=== PATIENT | female | born 1950 | race Caucasian/White ===

== ENCOUNTER 2023-04-08 11:05 | Outpatient (RCR) | payer MEDICARE, OTHER, SELFPAY | END 2023-04-08 23:59 | disposition home or self-care (01) | LOC: RPT 11:05 | PROVIDERS: ATTENDING PHYSICIAN Physical Medicine & Rehabilitation; FAMILY PHYSICIAN Family Medicine | DX: M16.11 Unilateral primary osteoarthritis, right hip (principal); M25.651 Stiffness of right hip, not elsewhere classified; R26.2 Difficulty in walking, not elsewhere classified; Z73.6 Limitation of activities due to disability | CPT/HCPCS: 97010; 97110; 97112; 97140 ==

== ENCOUNTER → 2023-06-25 14:02 | Outpatient (REF) | payer MEDICARE, OTHER, SELFPAY | LOC: DHCBS MAIN 14:02 | PROVIDERS: ATTENDING PHYSICIAN Internal Medicine Cardiovascular Disease; FAMILY PHYSICIAN Family Medicine | DX: R07.89 Other chest pain (principal) | CPT/HCPCS: 93306 ==

== ENCOUNTER → 2023-07-27 14:24 | Outpatient (REF) | payer MEDICARE, OTHER, SELFPAY | LOC: WDC 14:24 | PROVIDERS: ATTENDING PHYSICIAN Family Medicine | DX: Z12.31 Encounter for screening mammogram for malignant neoplasm of breast (principal) | CPT/HCPCS: 77063; 77067 ==

== ENCOUNTER 2023-09-08 12:31 | Emergency (ER) | payer MEDICARE, OTHER, SELFPAY ==
[2023-09-08 12:33] VITALS: BP 118/66
[2023-09-08 12:51] VITALS: BMI 28.2
[2023-09-08 13:15] LABS: COVID-19 Antigen Negative (Negative)
--- NOTE | 2023-09-08 13:27 | ED.GENMED ---
History of Present Illness
General
Chief Complaint: Breathing Problem
Source: patient
Exam Limitations: none
Time Seen by Provider: 09/08/23 12:55
Nursing documentation reviewed up to this point in time: agreed with
Travel History
Have you had any contact with someone who has COVID-19?: No
Do you have any symptoms of coronavirus? Fever > 100 degrees, chills, cough, shortness of breath, sore throat, loss of taste or smell, muscle aches, or headache?: No
History of Present Illness
History of Present Illness:
Patient presents to ED secondary to 4-day history of cough, sore throat, chills, and body ache. Denies loss of appetite. Denies vomiting or diarrhea. Denies headache. Denies rash. Denies recent travel. Denies back pain. Denies leg pain or
swelling. Denies recent surgery.
Past History
Past History
ED Past Medical History: Asthma, HTN, Hypercholesterolemia, Hypothyroidism and Other
ED Past Surgical History: None
Social History
Tobacco: Non-smoker
Personal: Single
Living: alone
Review of Systems
Review of Systems
Allergies reviewed?: Yes
All Other Systems: ROS reviewed and negative except as documented in HPI and ROS
Constitutional: Reports fever and chills
EENT: Reports sore throat
Respiratory: Reports cough and trouble breathing
Cardiac: Reports no symptoms
ABD/GI: Reports no symptoms; Denies abdominal pain, nausea or vomiting
: Reports no symptoms
Musculoskeletal: Reports muscle pain
Skin: Reports no symptoms
Neurological: Reports no symptoms; Denies dizzy or headache
Phy Exam
Physical Exam
Physical Exam:
Physical Exam
General: no apparent distress, not acutely ill. afebrile
Head: nc/at. eomi
Neck: supple. no meningeal signs. normal posterior pharynx
Heart: s1/s2 regular rate and rhythm, no murmur. equal radial pulses.
Lungs: mild respiratory distress. mild expiratory wheezing noted bilaterally
Abdomen: normal bowel sounds. not tender.
Neuro: alert and oriented. no focal neurological deficits
Skin: no rash
Psychiatric: well kept. interactive and cooperative
Extremities: no edema. no calf tenderness.
Scores
Heart Failure Risk
Heart Failure Risk Score: Not Applicable
Course
Orders/Labs/Results
Orders:
Orders
09/08/23 12:45
Chest [CR Chest - 2 Views ] Urgent
Comment:
Reason For Exam: fever & cough
09/08/23 12:51
COVID-19 Antigen Urgent
Source: Nasal Swab
Influenza A+B Rapid Molecular Urgent
HERB Source: Nasal Swab
Specimen Description:
09/08/23 13:27
Acetaminophen [Tylenol] 650 mg PO NOW STA
Albuterol Nebs [Ventolin Nebules] 2.5 mg INH R NOW STA
Benzonatate [Tessalon Perles] 100 mg PO NOW STA
Ipratropium/Albuterol Sulfate [Duoneb] 3 ml INH R NOW STA
Prednisone [Deltasone] 50 mg PO NOW STA
Vital Signs
Initial and Last Documented VS:
Initial Vital Signs
Temp Pulse Resp BP Pulse Ox
101.5 F H 97 20 118/66 98
09/08/23 12:33 09/08/23 12:33 09/08/23 12:33 09/08/23 12:33 09/08/23 12:33
Last Documented Vital Signs
Temp Pulse Resp BP Pulse Ox
98.4 F 84 18 100/66 95
09/08/23 15:15 09/08/23 15:10 09/08/23 15:10 09/08/23 15:15 09/08/23 15:10
MDM/Problems Addressed
MDM/Problems Addressed:
CXR: No acute changes.
History and exam consistent with likely bronchitis versus viral/bacterial pneumonia versus URI. Patient reports improvement in symptoms after treatment treatment and remains hemodynamically stable during observation. Patient without any evidence
of hemodynamic instability, dehydration, or any acute respiratory distress. As such, patient will be discharged home with following recommendation: Amarjit-Heladio, Noe Perle, albuterol inhaler, along with prednisone, as well as PCP follow-up for
reevaluation as an outpatient. Patient expresses understanding at time of discharge.
*Critical Care Note
Total Time (30-74mins, 75-104mins- exclusive of procedures): Not Applicable
ED Attending Note
-
Portions of this chart may have been created with voice recognition software.� Occasional wrong word or��sound alike� substitutions may have occurred due to the inherent limitations of voice recognition software.
Discharge Plan
Departure
Patient Disposition: Home (Routine Discharge)
Date of Disposition: 09/08/23
Time of Disposition: 14:59
Patient with high blood pressure during this ER visit?: No
Discharge Problem:
URI (upper respiratory infection)
Instructions: Upper Respiratory Infection - Adult
Prescriptions:
New
albuterol sulfate [ProAir HFA] 90 mcg/actuation Hfa Aerosol Inhaler
2 puff INHALATION Q4HPRN PRN (Reason: shortness of breath) Qty: 6.7 0RF
azithromycin [Zithromax] 250 mg Tablet
250 mg PO DAILY Qty: 6 0RF
prednisone 50 mg Tablet
50 mg PO DAILY Qty: 2 0RF
benzonatate 100 mg capsule
100 mg PO TID PRN (Reason: Cough) Qty: 14 0RF
No Action
aspirin [Aspirin Childrens] 81 MG tablet,chewable
81 mg PO DAILY
levothyroxine 112 MCG tablet
112 mcg PO DAILY
multivitamin 1 EACH tablet
1 ea PO DAILY
lisinopril 5 MG tablet
5 mg PO DAILY
coenzyme Q10 [Co Q-10] 200 MG capsule
200 mg PO DAILY
atorvastatin 10 MG tablet
10 mg PO DAILY
carvedilol 12.5 mg tablet
12.5 mg PO BID
acetaminophen 500 mg Tablet
500 mg PO Q6H PRN (Reason: mild pain)
spironolactone 25 mg tablet
12.5 mg PO DAILY
albuterol sulfate 90 mcg/actuation Hfa Aerosol Inhaler
2 puff INHALATION R Q6 PRN (Reason: sob/wheezing)
magnesium 200 mg Tablet
200 mg PO DAILY
glucosamine-chondroitin [Osteo Bi-Flex] 250-200 mg Tablet
1 tab PO BID
papain 100 mg Tablet
100 mg PO DAILY
ondansetron 4 mg tablet,disintegrating
4 mg PO Q8H 2 Days Qty: 6 0RF
Referrals:
Agustina Banks MD [Family Provider] -
Activity Restrictions/Additional Instructions:
As discussed, please follow-up with your primary care physician for reevaluation. Your prescriptions have been sent electronically to [facility] pharmacy on [facility] in [place].
Interventions
Interventions:
*Risk Screen - Suicide Last Done: 09/08/23 12:33
*General Assessment Last Done: 09/08/23 12:33
*Neglect/Abuse Screening Last Done: 09/08/23 12:33
ED- Fall Risk Assessment Last Done: 09/08/23 15:19
*ED COVID-19 Vaccine History Last Done: 09/08/23 15:19
*Nursing Disposition Last Done: 09/08/23 15:19
ED- Cardiac Assessment Last Done: 09/08/23 14:26
ED- Pulmonary Assessment Last Done: 09/08/23 14:26
Discharge Date and Time
Discharge Date/Time: 09/08/23 15:20
Print Language: ROMANIAN
[2023-09-08] MEDS: TESSALON PERLES 100 MG PO (13:36)
[2023-09-08] MEDS: DELTASONE 50 MG PO (13:36)
[2023-09-08] MEDS: TYLENOL 650 MG PO (13:36)
[2023-09-08] MEDS: DUONEB 3 ML INH (14:03)
[2023-09-08] MEDS: VENTOLIN NEBULES 2.5 MG INH (14:03)
[2023-09-08 15:10] VITALS: BP 86/50; BP 87/60
[2023-09-08 15:15] VITALS: BP 100/66
== END 2023-09-08 15:20 | disposition home or self-care (01) ==
LOC: EMR 12:31
PROVIDERS: EMERGENCY PHYSICIAN Emergency Medicine; FAMILY PHYSICIAN Family Medicine
DX: J06.9 Acute upper respiratory infection, unspecified (principal); Z11.52 Encounter for screening for COVID-19; I10 Essential (primary) hypertension; E78.00 Pure hypercholesterolemia, unspecified; E03.9 Hypothyroidism, unspecified; J45.909 Unspecified asthma, uncomplicated; Z79.82 Long term (current) use of aspirin; M79.10 Myalgia, unspecified site
CPT/HCPCS: 99283; 94640; 71046; 87502; 87811

== ENCOUNTER → 2024-02-17 11:23 | Outpatient (REF) | payer MEDICARE, OTHER, SELFPAY | LOC: HWRAD 11:23 | PROVIDERS: ATTENDING PHYSICIAN Internal Medicine Endocrinology, Diabetes & Metabolism; FAMILY PHYSICIAN Family Medicine | DX: E04.2 Nontoxic multinodular goiter (principal) | CPT/HCPCS: 76536 ==

== ENCOUNTER 2024-02-24 12:56 | Outpatient (RCR) | payer MEDICARE, OTHER, SELFPAY | END 2024-02-24 23:59 | disposition home or self-care (01) | LOC: RPT 12:56 | PROVIDERS: ATTENDING PHYSICIAN Family Medicine | DX: M16.11 Unilateral primary osteoarthritis, right hip (principal); Z73.6 Limitation of activities due to disability | CPT/HCPCS: 97110; 97162; 97530 ==

== ENCOUNTER 2024-03-22 11:02 | Outpatient (RCR) | payer MEDICARE, OTHER, SELFPAY | END 2024-03-24 05:47 | disposition home or self-care (01) | LOC: RPT 11:02 | PROVIDERS: ATTENDING PHYSICIAN Family Medicine | DX: M16.11 Unilateral primary osteoarthritis, right hip (principal); Z73.6 Limitation of activities due to disability; R26.2 Difficulty in walking, not elsewhere classified; M62.81 Muscle weakness (generalized) | CPT/HCPCS: 97110; 97112; 97530 ==

== ENCOUNTER 2024-03-29 07:42 | Inpatient (IN) | payer MEDICARE, OTHER, SELFPAY ==
[2024-02-29 13:17] VITALS: BMI 29.4
[2024-02-29 13:31] LABS: Hematocrit 41.5 % (37.0-47.0); Hemoglobin 14.4 g/dL (12.0-16.0); Mean Corp Hgb Conc. 34.7 g/dL (33.0-37.0); Mean Corpuscular Volume 89.2 fL (81.0-99.0); Platelet Count 208 10^3/uL (130-400); Red Blood Cell Count 4.65 10^6/uL (4.20-5.40); Red Cell Dist. Width 13.3 % (11.5-14.5); White Blood Cell Count 6.9 10^3/uL (4.8-10.8)
[2024-02-29 13:55] LABS: Glycohemoglobin (HgbA1c) 6.3 % (4.0-5.6)
[2024-02-29 13:59] LABS: ALT (SGPT) 28 U/L (0-35); AST (SGOT) 30 U/L (14-36); Albumin 4.4 g/dl (3.5-5.0); Alkaline Phosphatase 48 U/L (38-126); Blood Urea Nitrogen 37 mg/dl (7-17); Carbon Dioxide 19 mmol/L (22-30); Chloride 106 mmol/L (98-107); Estimated Creatinine Clearance 50 ml/min; Glucose 115 mg/dl (70-99); Potassium 4.9 mmol/L (3.5-5.1); Sodium 140 mmol/L (135-145); Total Bilirubin 0.4 mg/dl (0.2-1.3); Total Protein 6.7 g/dl (6.3-8.2); eGFR 52.73
[2024-03-22 11:59] VITALS: BMI 29.4
[2024-03-22 12:56] VITALS: BMI 29.4
[2024-03-29] VITALS (31 sets, daily range): BP systolic 95–122; BP diastolic 60–76; PULSE 76–96; O2SAT 97
[2024-03-29] MEDS: CELEBREX 200 MG PO (08:16)
[2024-03-29] MEDS: TYLENOL 650 MG PO ×4 (08:16→23:00)
--- NOTE | 2024-03-29 10:32 | W.PN.UPDATE ---
Update Note
Progress Note Update
R JAMES Workman 03/29/24
PVCs-BB+tele
NICM/HFimpEF-decrease IVF rate and monitor volume status-resume Aldactone am w/ parameter
Hx TIA-BP control-asa+statin
CKD3-no NSAIDs
Borderline DM-minimize steroids-SSI coverage-Cefadroxil Rx ppx
--- NOTE | 2024-03-29 10:44 | W.DS.TRANS ---
DC Summary - Touch Up Carver
-
Discharge Instructions:
Sleep Apnea Risk Low
Discharge Diagnosis/Procedures R JAMES 03/29/24
Diet Diabetic, Carb Controlled
Activity With Walker
Additional Activity HIP PRECAUTIONS
Driving Restrictions No driving
Bathing Restrictions OK to Shower
Other Services PT
Instructions:
Stand-Alone Forms: Total Hip/Knee Replacement D/C
Changes to Home Medications: Yes
Discharge Medications:
DC Medications w/original date entered in [facility]
aspirin 81 mg chewable tablet (Aspirin Childrens) 81 mg PO DAILY 02/10/18
atorvastatin 10 mg tablet 10 mg PO DAILY 02/10/18
coenzyme Q10 200 mg capsule (Co Q-10) 200 mg PO DAILY 02/10/18
levothyroxine 112 mcg tablet 112 mcg PO DAILY 02/10/18
lisinopril 5 mg tablet 5 mg PO DAILY 02/10/18
multivitamin 1 ea PO DAILY 02/10/18
albuterol sulfate 90 mcg/actuation aerosol inhaler 2 puff inhalation R Q6 PRN sob/wheezing 09/26/22
carvedilol 12.5 mg tablet 12.5 mg PO BID 09/26/22
glucosamine-chondroitin 250 mg-200 mg tablet (Osteo Bi-Flex) 1 tab PO BID 09/26/22
magnesium 200 mg tablet 200 mg PO DAILY 09/26/22
ondansetron 4 mg disintegrating tablet 4 mg PO Q8H 2 days #6 tabs 09/26/22
papain 100 mg tablet 100 mg PO DAILY 09/26/22
spironolactone 25 mg tablet 12.5 mg PO DAILY 09/26/22
krill oil 1 dose PO DAILY 03/22/24
Saccharomyces boulardii 250 mg capsule (Florastor) 250 mg PO BID #1 cap 03/29/24
acetaminophen 500 mg tablet 1,000 mg (2 x 500 mg) PO QID #0 tabs 03/29/24
aspirin 325 mg tablet 325 mg PO DAILY blood clot prevention #1 tab 03/29/24
cefadroxil 500 mg capsule 500 mg PO BID infection prevention #14 caps 03/29/24
docusate sodium 100 mg capsule (Colace) 100 mg PO BID stool softner #1 cap 03/29/24
gabapentin 300 mg capsule 300 mg PO HS sleep/pain #10 caps 03/29/24
magnesium hydroxide 400 mg/5 mL oral suspension (Milk of Magnesia) 30 ml PO HS PRN Constipation #1 mL 03/29/24
mupirocin 2 % topical ointment 1 applic topical DIRECTED 03/29/24
ondansetron 4 mg disintegrating tablet 4 mg PO Q6H PRN n/v #20 tabs 03/29/24
oxycodone 5 mg tablet 5 mg PO Q6H PRN 1 tab moderate pain, 2 tabs severe pain #30 tabs 03/29/24
sennosides 8.6 mg tablet (Senokot) 17.2 mg (2 x 8.6 mg) PO BID laxative #2 tabs 03/29/24
Home Medication Changes
Saccharomyces boulardii 250 mg capsule (Florastor) 250 mg PO BID #1 cap 03/29/24
acetaminophen 500 mg tablet 1,000 mg (2 x 500 mg) PO QID #0 tabs 03/29/24
aspirin 325 mg tablet 325 mg PO DAILY blood clot prevention #1 tab 03/29/24
cefadroxil 500 mg capsule 500 mg PO BID infection prevention #14 caps 03/29/24
docusate sodium 100 mg capsule (Colace) 100 mg PO BID stool softner #1 cap 03/29/24
gabapentin 300 mg capsule 300 mg PO HS sleep/pain #10 caps 03/29/24
magnesium hydroxide 400 mg/5 mL oral suspension (Milk of Magnesia) 30 ml PO HS PRN Constipation #1 mL 03/29/24
mupirocin 2 % topical ointment 1 applic topical DIRECTED 03/29/24
ondansetron 4 mg disintegrating tablet 4 mg PO Q6H PRN n/v #20 tabs 03/29/24
oxycodone 5 mg tablet 5 mg PO Q6H PRN 1 tab moderate pain, 2 tabs severe pain #30 tabs 03/29/24
sennosides 8.6 mg tablet (Senokot) 17.2 mg (2 x 8.6 mg) PO BID laxative #2 tabs 03/29/24
Pending Results: No
[2024-03-29] MEDS: ROXICODONE 5 MG PO ×2 (11:10→16:39)
[2024-03-29] MEDS: SYNTHROID PO (16:26)
[2024-03-29] MEDS: NORMOSOL-R/PLASMALYTE-A 1000 IV (16:32)
[2024-03-29] MEDS: ZOFRAN ODT (ORALLY DISINTEGRATING) 4 MG PO ×2 (16:32→23:00)
[2024-03-29] MEDS: CYKLOKAPRON 1950 MG PO ×2 (16:32→23:00)
[2024-03-29] MEDS: ANCEF 5 IV (16:33)
[2024-03-29] MEDS: FLUSH (NSS) 1 FLUSH IV (16:33)
[2024-03-29] MEDS: LIPITOR PO (16:41)
[2024-03-29 16:48] LABS: Glucose - Point of Care 259 mg/dl (70-99)
[2024-03-29] MEDS: ASPIRIN 325 MG PO (18:31)
[2024-03-29] MEDS: BACTROBAN 2% OINTMENT 1 APPLIC NASAL (20:06)
[2024-03-29] MEDS: COREG 12.5 MG PO (20:07)
[2024-03-29] MEDS: ULTRAM 50 MG PO (20:07)
[2024-03-29] MEDS: SENOKOT PO (20:08)
[2024-03-29] MEDS: COLACE PO (20:08)
[2024-03-29 22:30] LABS: Glucose - Point of Care 159 mg/dl (70-99)
[2024-03-29] MEDS: NEURONTIN 300 MG PO (23:00)
[2024-03-30] VITALS (8 sets, daily range): BP systolic 92–119; BP diastolic 53–69; PULSE 72
[2024-03-30] MEDS: ANCEF 5 IV (00:45)
[2024-03-30] MEDS: TYLENOL 650 MG PO ×6 (04:36→23:32)
[2024-03-30] MEDS: SYNTHROID 112 MCG PO (07:23)
[2024-03-30 07:35] LABS: Glucose - Point of Care 132 mg/dl (70-99)
--- NOTE | 2024-03-30 07:57 | W.PN.UPDATE ---
Update Note
Progress Note Update
pt doing very well, walking to BR. I said I think she can go home today if pt goes well, she said she feels she will need to stay 3 days and stay at a rehab. I told her I dont think that's likely. we will see how therapy goes this am. She
loooks great.
[2024-03-30] MEDS: BACTROBAN 2% OINTMENT 1 APPLIC NASAL ×2 (08:00→20:02)
[2024-03-30] MEDS: ASPIRIN 325 MG PO (08:01)
[2024-03-30] MEDS: SENOKOT 17.2 MG PO ×2 (08:01→20:01)
[2024-03-30] MEDS: ULTRAM 50 MG PO (08:01)
[2024-03-30] MEDS: COREG 12.5 MG PO ×2 (08:01→20:05)
[2024-03-30] MEDS: MAGNESIUM OXIDE 500 MG PO (08:01)
[2024-03-30] MEDS: COLACE 100 MG PO ×2 (08:01→20:01)
[2024-03-30] MEDS: ZOFRAN ODT (ORALLY DISINTEGRATING) 4 MG PO ×3 (08:01→23:33)
[2024-03-30] MEDS: LIPITOR 10 MG PO (08:01)
--- NOTE | 2024-03-30 10:16 | W.PN.ORTHO ---
Today's Communication / Plan
-
D/C am if stable
Assessment
.
Distal Motor Intact: Yes
Dressing:
Clean, dry and intact.
Assessment:
Orthostasis-IVF -250ml over 2h due to HFimpEF/NICM-- + Midodrine-minimize opioids
-hgb stable with no incisional drainage -no hemodynamic compromise
PVCs-BB+tele
NICM/HFimpEF-decrease IVF rate and monitor volume status-resume Aldactone am w/ parameter
Hx TIA-BP control-asa+statin
CKD3-no NSAIDs
Borderline DM-minimize steroids-SSI coverage-Cefadroxil Rx ppx
-sugars improved and well controlled POD#1
Plan
.
Surgery / Date: R JAMES Workman 03/29/24
DVT Prophylaxis: Aspirin
Activity:
Out of bed.
PT/OT
Discharge Plan: Home w/ VN
Subjective
.
.:
dizzy
Vital Signs and Labs
.
Vital Signs and Labs:
Lab Results
02/29/24 13:15
02/29/24 13:15
Temp Pulse Resp BP Pulse Ox
97.5 F 84 18 107/64 96
03/30/24 07:35 03/30/24 07:35 03/30/24 07:35 03/30/24 08:03 03/30/24 08:00
Non-invasive Hgb result: 14.2
Physical Exam
-
HEENT: No pallor, cyanosis, or jaundice. Throat clear.
NECK: Supple. No JVD.
RESPIRATORY: Lungs clear to auscultation.
CVS: S1, S2 normal. RRR.� No murmur, rub or gallop.
ABDOMEN: Soft, non-tender. No distension. BS+/normal.
EXTREMITIES: strength equal, no calf pain with palpation
PROOF MACHINE OPERATOR: AOx3. No focal deficits. queen producer grossly intact
[2024-03-30] MEDS: DECADRON 4 MG IV ×2 (10:46→19:59)
[2024-03-30] MEDS: ProAmatine 5 MG PO ×3 (10:46→17:35)
[2024-03-30] MEDS: NSS 250 IV (10:47)
--- NOTE | 2024-03-30 10:52 | CM ---
Patient seen at bedside with Daughter Lillie
R JAMES
Per nsg Midodrine was ordered - B/P
IA completed. Case management consult completed.
Lives in a multi story home alone, 1 step to enter, 1st floor set up bed/bath
PLOF: indepdendet, not using device
DME: walker, cane
Spoke with patient regarding HH as rec by PT - prefer [facility] & referral placed and accepted.
Bianka Davis will order - tentative d/c tomorrow
PCP: Agustina Banks
Pharmacy: [facility]
PLAN: Home with VN
family to transport
[2024-03-30 11:44] LABS: Glucose - Point of Care 135 mg/dl (70-99)
--- NOTE | 2024-03-30 14:12 | VNURNOTE ---
Home Health Liaison met with patient to discuss [facility] nurse/therapy, visits, schedule and homebound status. Patient is agreeable and understands that visits at home will be 2-3 x per week to assess and teach medical management. [facility] brochure provided
with contact information. Patient is aware that [facility] will contact them for start of care in 1-2 days after discharge from .
[facility] referral accepted in [facility].
[2024-03-30 16:28] LABS: Glucose - Point of Care 171 mg/dl (70-99)
[2024-03-30 21:38] LABS: Glucose - Point of Care 132 mg/dl (70-99)
[2024-03-30] MEDS: NEURONTIN 300 MG PO (23:32)
[2024-03-31 02:45] VITALS: BP 110/66
[2024-03-31] MEDS: TYLENOL PO ×3 (05:53→23:38)
[2024-03-31] MEDS: ProAmatine 5 MG PO (06:05)
[2024-03-31 08:00] VITALS: BP 124/71
[2024-03-31 08:14] LABS: Glucose - Point of Care 133 mg/dl (70-99)
[2024-03-31] MEDS: COREG 12.5 MG PO ×2 (09:06→21:35)
[2024-03-31] MEDS: ZOFRAN ODT (ORALLY DISINTEGRATING) 4 MG PO ×2 (09:06→17:11)
[2024-03-31] MEDS: LIPITOR 10 MG PO (09:06)
[2024-03-31] MEDS: MAGNESIUM OXIDE 500 MG PO (09:06)
[2024-03-31] MEDS: ASPIRIN 325 MG PO (09:07)
[2024-03-31] MEDS: COLACE PO ×2 (09:08→21:31)
[2024-03-31] MEDS: DECADRON 4 MG IV (09:08)
[2024-03-31] MEDS: SYNTHROID 112 MCG PO (09:08)
[2024-03-31] MEDS: TYLENOL 650 MG PO ×3 (09:08→18:32)
[2024-03-31] MEDS: SENOKOT PO ×2 (09:08→21:31)
[2024-03-31] MEDS: ULTRAM 50 MG PO ×2 (09:15→21:34)
--- NOTE | 2024-03-31 09:47 | W.PN.ORTHO ---
Today's Communication / Plan
-
d/c
Assessment
.
Distal Motor Intact: Yes
Dressing:
Clean, dry and intact.
Assessment:
Orthostasis POD#1-IVF -250ml over 2h due to HFimpEF/NICM-- + Midodrine-minimize opioids--resolved POD#2
-hgb stable with no incisional drainage -no hemodynamic compromise
PVCs-BB--stable on tele
NICM/HFimpEF-decrease IVF rate -resumed Aldactone w/ parameter-volume status stable
Hx TIA-BP control-asa+statin
CKD3-no NSAIDs
Borderline DM-minimize steroids-SSI coverage-Cefadroxil Rx ppx
-sugars improved and well controlled
Plan
.
Surgery / Date: R JAMES Dr Workman 03/29/24
DVT Prophylaxis: Aspirin
Activity:
Out of bed.
PT/OT
Discharge Plan: Home w/ VN
Subjective
.
.:
Patient resting comfortably.
Vital Signs and Labs
.
Vital Signs and Labs:
Lab Results
02/29/24 13:15
02/29/24 13:15
Temp Pulse Resp BP Pulse Ox
98.0 F 76 18 136/78 95
03/31/24 08:00 03/31/24 09:07 03/31/24 08:00 03/31/24 09:07 03/31/24 08:00
Non-invasive Hgb result: 14.2
Physical Exam
-
HEENT: No pallor, cyanosis, or jaundice. Throat clear.
NECK: Supple. No JVD.
RESPIRATORY: Lungs clear to auscultation.
CVS: S1, S2 normal. RRR.� No murmur, rub or gallop.
ABDOMEN: Soft, non-tender. No distension. BS+/normal.
EXTREMITIES: strength equal, no calf pain with palpation
MECHANICAL SOUND TECHNICIAN: AOx3. No focal deficits. film sorter grossly intact
--- NOTE | 2024-03-31 10:29 | PTCARENOTE ---
despite encouraging pt and providing education pt refusing to work with pt/ot this AM. pt not interested in getting out of bed to chair and refusing hygiene. pt refusing dc. COURTNEY Davis made aware via T.T. plan of care continues to be followed.
[2024-03-31 12:09] LABS: Glucose - Point of Care 181 mg/dl (70-99)
[2024-03-31 13:36] VITALS: BP 128/72; BP 135/89; PULSE 80; O2SAT 96
--- NOTE | 2024-03-31 14:15 | CM ---
Addendum entered by Merry Moore 03/31/24 16:05:
Given copy of DND
Addendum entered by Merry Moore 03/31/24 15:20:
Pt refused to sign IMM
Appealed discharge with [employer]
Clinical information faxed to [employer] - appeal initiated
Original Note:
Pt medically ready for discharge
PT/OT evaluated pt - recs - [facility] to follow at discharge
Spoke with pt at bedside, given IMM
Pt stating she prefers discharge tomorrow
Discussed medically ready, has home care in place
Called pts daughter Lillie Glez LM with call back number requesting return call
Plan - home with [facility]
[2024-03-31 16:00] VITALS: BP 122/70
[2024-03-31 17:21] LABS: Glucose - Point of Care 134 mg/dl (70-99)
[2024-03-31 21:35] VITALS: BP 140/85
[2024-03-31] MEDS: NEURONTIN 300 MG PO (21:35)
[2024-03-31 21:37] LABS: Glucose - Point of Care 111 mg/dl (70-99)
[2024-03-31 23:37] VITALS: BP 116/64
[2024-03-31] MEDS: ZOFRAN ODT (ORALLY DISINTEGRATING) PO (23:38)
[2024-04-01] VITALS (7 sets, daily range): BP systolic 99–139; BP diastolic 61–71; O2SAT 95
[2024-04-01] MEDS: TYLENOL PO ×2 (04:30→12:36)
[2024-04-01 07:33] LABS: Glucose - Point of Care 97 mg/dl (70-99)
--- NOTE | 2024-04-01 08:59 | W.PN.ORTHO ---
Today's Communication / Plan
-
POD#3 right JAMES under the direction of Dr. Workman
--Weight bear as tolerated to right leg. Ambulate with walker
--PT/OT
--Hip precautions
--Continue with current pain management
--Aspirin 325mg daily x4 weeks postop for DVT prophylaxis
--Dressing to remain in place until 7-10 days postop, then may remove and leave open to air
--Case management consult for discharge planning
--Patient is medically stable for discharge
Assessment
.
Distal Motor Intact: Yes
Dressing:
Clean, dry and intact.
Plan
.
Surgery / Date: R JAMES Dr Workman 03/29/24
DVT Prophylaxis: Aspirin
Activity:
Out of bed.
PT/OT
Subjective
.
.:
Patient resting comfortably in bed this morning. She reports that she has no pain at the current moment.
Vital Signs and Labs
.
Vital Signs and Labs:
Lab Results
02/29/24 13:15
02/29/24 13:15
Temp Pulse Resp BP Pulse Ox
98.0 F 72 16 111/63 95
04/01/24 07:16 04/01/24 07:16 04/01/24 07:16 04/01/24 07:16 04/01/24 07:16
Non-invasive Hgb result: 14.2
Physical Exam
-
Directed exam of right hip reveals surgical dressing in place. clean, dry, and intact. mild tenderness about the lateral hip. thigh is soft and compressible. able to plantarflex/dorsiflex the ankle. calf soft and nontender. NVI distally
[2024-04-01] MEDS: COLACE PO ×2 (09:47→21:57)
[2024-04-01] MEDS: ASPIRIN 325 MG PO (09:47)
[2024-04-01] MEDS: SENOKOT PO ×2 (09:47→21:57)
[2024-04-01] MEDS: TYLENOL 650 MG PO ×3 (09:48→21:50)
[2024-04-01] MEDS: ZOFRAN ODT (ORALLY DISINTEGRATING) PO ×2 (09:48→16:53)
[2024-04-01] MEDS: LIPITOR 10 MG PO (09:49)
[2024-04-01] MEDS: COREG 12.5 MG PO ×2 (09:49→21:56)
[2024-04-01] MEDS: SYNTHROID 112 MCG PO (09:56)
[2024-04-01] MEDS: MAGNESIUM OXIDE 500 MG PO (09:56)
[2024-04-01 12:05] LABS: Glucose - Point of Care 132 mg/dl (70-99)
--- NOTE | 2024-04-01 14:25 | W.PN.UPDATE ---
Update Note
Progress Note Update
Notified by case management that patient's discharge was upheld. Spoke to patient who tells me that she does not have anyone at home. She also tells me that her daughter is able to help her for a few hours a day. I tried to make suggestions for help
at home, however she was not receptive. She has been set up with [facility]. She reports that her pain is well controlled and she was modified independent with PT today. She is recommended for home with home care. Patient continues
to be medically stable for discharge.
--- NOTE | 2024-04-01 15:27 | CM ---
[employer] notification - appeal denied
Pt given copy of letter from [facility]. Aware she is medically ready for discharge
Pt reports she is not ready. Reports limited support and lives alone. Offered information for private caregivers to assist at home - declined
PT continues to recommend HH
Accepted for home care needs - PT/OT by [facility].
Mirela Kurtz PA-C made aware and spoke with pt - medically cleared for discharge
Pt aware she will be financially responsible for her stay beginning at 1200 on 04/02/2024
Plan - home with [facility]
[2024-04-01] MEDS: MYLICON 80 MG PO (16:29)
[2024-04-01 16:32] LABS: Glucose - Point of Care 106 mg/dl (70-99)
--- NOTE | 2024-04-01 16:54 | PTCARENOTE ---
Addendum entered by Amairani Farnsworth RN 04/01/24 18:58:
now states daughter will be here at 1100 12/8 but needs everything in writing.
Addendum entered by Amairani Farnsworth RN 04/01/24 18:12:
pt walked with RW to nursing desk stating she wanted e-mail addresses of CM and anyone else who could help, susu. She would like to send her statements to to get copies in writing. Also in an earlier conversation nurse asked if she already had
plans prior to surgery. pt stated to she is sleeping in downstairs guest bedroom with connected bathroom with a shower chair.
Original Note:
pt is not leaving today, states she would like to leave Wednesday at noon bc that is more convenient for her family. She wants everything in writing by us, when she has to leave and financial responsibility, if SNF is still covered after . She was
here 3days and meets requirements but Nurse stated not SNF requirements and was d/c 03/31, SHe would like in writing how often VN comes (in case they do not show and she trips that day and falls). Nurse tried to explain we are not liable for these
items and she can call her insurance company and discuss with them. She also stated that it was illegal (per her senior storage engineer family member) that we did not have an independent company come to speak to her and examine her. Medicare only reviewed our
notes. CM is no longer her. VN services did call and verify they are on board but she again would like another confirmation.
[2024-04-01 21:20] LABS: Glucose - Point of Care 117 mg/dl (70-99)
[2024-04-01] MEDS: NEURONTIN 300 MG PO (21:49)
[2024-04-01] MEDS: MAALOX 30 ML PO (23:24)
[2024-04-02] MEDS: ZOFRAN ODT (ORALLY DISINTEGRATING) PO ×2 (02:06→08:47)
[2024-04-02] MEDS: TYLENOL PO ×2 (02:06→05:30)
[2024-04-02 03:27] VITALS: BP 137/46
[2024-04-02] MEDS: SYNTHROID 112 MCG PO (06:40)
[2024-04-02 07:20] VITALS: BP 109/64
[2024-04-02 08:30] LABS: Glucose - Point of Care 106 mg/dl (70-99)
[2024-04-02] MEDS: COREG 12.5 MG PO (08:32)
[2024-04-02] MEDS: TYLENOL 650 MG PO (08:33)
[2024-04-02] MEDS: COLACE 100 MG PO (08:33)
[2024-04-02] MEDS: ASPIRIN 325 MG PO (08:33)
[2024-04-02] MEDS: LIPITOR 10 MG PO (08:34)
[2024-04-02] MEDS: MAGNESIUM OXIDE 500 MG PO (08:34)
[2024-04-02] MEDS: SENOKOT PO (08:47)
[2024-04-02 11:00] VITALS: BP 121/70
--- NOTE | 2024-04-02 12:45 | CM ---
Pt medically ready for discharge
Daughter to transport home
[facility] to follow - TT sent to Andree at [facility] - aware of d/c
[facility]
== END 2024-04-02 11:58 | disposition home health service (06) | DRG 470 ==
LOC: 2 SOUTH 07:42
PROVIDERS: ADMITTING PHYSICIAN Orthopaedic Surgery; FAMILY PHYSICIAN Family Medicine; REFERRING PHYSICIAN Internal Medicine Cardiovascular Disease
PROC: 0SR903A Replacement of Right Hip Joint with Ceramic Synthetic Substitute, Uncemented, Open Approach (ICD-10-PCS; 2024-03-29)
DX: M16.11 Unilateral primary osteoarthritis, right hip (principal); I42.8 Other cardiomyopathies; I50.30 Unspecified diastolic (congestive) heart failure; Z79.82 Long term (current) use of aspirin; R26.2 Difficulty in walking, not elsewhere classified; E03.9 Hypothyroidism, unspecified; E78.5 Hyperlipidemia, unspecified; Z78.9 Other specified health status; Z80.42 Family history of malignant neoplasm of prostate; Z80.49 Family history of malignant neoplasm of other genital organs; Z80.0 Family history of malignant neoplasm of digestive organs; K21.9 Gastro-esophageal reflux disease without esophagitis; I49.3 Ventricular premature depolarization; Z86.73 Personal history of transient ischemic attack (TIA), and cerebral infarction without residual deficits; N18.30 Chronic kidney disease, stage 3 unspecified; R73.03 Prediabetes; I12.9 Hypertensive chronic kidney disease with stage 1 through stage 4 chronic kidney disease, or unspecified chronic kidney disease
CPT/HCPCS: 36415; 73502; 80053; 82962; 83036; 85027; 87070; 97110; 97116; 97161; 97166; 97530; 97535; C1713; C1776

== ENCOUNTER 2024-06-22 11:03 | Outpatient (RCR) | payer MEDICARE, OTHER, SELFPAY | END 2024-06-22 23:59 | disposition home or self-care (01) | LOC: RPT 11:03 | PROVIDERS: ATTENDING PHYSICIAN Orthopaedic Surgery; FAMILY PHYSICIAN Family Medicine | DX: Z47.1 Aftercare following joint replacement surgery (principal); R26.89 Other abnormalities of gait and mobility; Z73.6 Limitation of activities due to disability; M62.81 Muscle weakness (generalized); R26.2 Difficulty in walking, not elsewhere classified; Z96.641 Presence of right artificial hip joint | CPT/HCPCS: 97110; 97140; 97162; 97530 ==

== ENCOUNTER 2024-07-13 11:01 | Outpatient (RCR) | payer MEDICARE, OTHER, SELFPAY | END 2024-07-18 14:04 | disposition home or self-care (01) | LOC: RPT 11:01 | PROVIDERS: ATTENDING PHYSICIAN Orthopaedic Surgery; FAMILY PHYSICIAN Family Medicine | DX: Z47.1 Aftercare following joint replacement surgery (principal); R26.89 Other abnormalities of gait and mobility; Z96.641 Presence of right artificial hip joint; Z73.6 Limitation of activities due to disability; M62.81 Muscle weakness (generalized); R26.2 Difficulty in walking, not elsewhere classified | CPT/HCPCS: 97110; 97112; 97530 ==

== ENCOUNTER → 2024-07-28 12:06 | Outpatient (REF) | payer MEDICARE, OTHER, SELFPAY | LOC: WDC 12:06 | PROVIDERS: ATTENDING PHYSICIAN Family Medicine | DX: Z12.31 Encounter for screening mammogram for malignant neoplasm of breast (principal) | CPT/HCPCS: 77063; 77067 ==

== ENCOUNTER → 2024-09-27 13:00 | Outpatient (REF) | payer MEDICARE, OTHER, SELFPAY | LOC: RCS 13:00 | PROVIDERS: ATTENDING PHYSICIAN Internal Medicine Cardiovascular Disease; FAMILY PHYSICIAN Family Medicine | DX: I50.32 Chronic diastolic (congestive) heart failure (principal); I34.0 Nonrheumatic mitral (valve) insufficiency | CPT/HCPCS: 93306 ==

== ENCOUNTER 2024-10-22 20:55 | Emergency (ER) | payer MEDICARE, OTHER, SELFPAY ==
[2024-10-22 20:58] VITALS: BP 123/74
--- NOTE | 2024-10-22 22:58 | ED.SKININJ ---
HPI-Injury
General
Chief Complaint: Skin Problem
Source: patient
Exam Limitations: none
Time Seen by Provider: 10/22/24 22:40
History of Present Illness-Injury
Initial Injury comments:
74-year-old female presents with possible embedded tick in the left upper arm that she noticed today. She felt itchiness to the left outer upper arm and felt the bump and looked in the mirror and saw a dark spot underneath her skin. She denies
fevers or joint ache no headache or fatigue. No other complaints at this time
Past History
Past History
ED Past Medical History: Asthma, HTN, Hypercholesterolemia, Hypothyroidism and Other
ED Past Surgical History: None
Social History
Tobacco: Non-smoker
Personal: Single
Living: alone
Phy Exam
Physical Exam
Physical Exam:
General: Well-appearing female no acute distress
Skin: Left upper outer arm with what appears to be an insect bite however the center of the bite there is a small round dark spot in the skin. This is not fluctuant or indurated. It is nontender. This is slightly pruritic
Course
Orders/Labs/Results
Orders:
Orders
10/22/24 22:55
Doxycycline [Vibramycin] 200 mg PO NOW STA
Vital Signs
Initial and Last Documented VS:
Initial Vital Signs
Temp Pulse Resp BP Pulse Ox
97.4 F 75 18 123/74 96
10/22/24 20:58 10/22/24 20:58 10/22/24 20:58 10/22/24 20:58 10/22/24 20:58
Last Documented Vital Signs
Temp Pulse Resp BP Pulse Ox
97.4 F 75 18 123/74 96
10/22/24 20:58 10/22/24 20:58 10/22/24 20:58 10/22/24 20:58 10/22/24 20:58
MDM/Problems Addressed
Differential Diagnosis Includes:
Insect bite left upper outer arm question possible retained part of a tick. Given the uncertainty of what is actually embedded underneath the skin there was advised that we remove what ever it is that is embedded in the skin. She was in agreement
with this. The area was cleansed with alcohol and anesthetized with 1% lidocaine with epinephrine. The area was unroofed using a pair of scissors and the small black circular foreign body was removed from the skin. It is possible this could be
the head of a tick or piece of a thorn however will cover for the potential of a tick bite with a one-time dose of doxycycline. No indication for any further treatment. Stable for discharge
*Pulse Oximetry
SaO2: 96
Oxygen Mode of Delivery: Room air
Patient hypoxic: no
*Critical Care Note
Total Time (30-74mins, 75-104mins- exclusive of procedures): Not Applicable
ED Attending Note
-
Portions of this chart may have been created with voice recognition software.� Occasional wrong word or��sound alike� substitutions may have occurred due to the inherent limitations of voice recognition software.
Discharge Plan
Departure
Patient Disposition: Home (Routine Discharge)
Date of Disposition: 10/22/24
Time of Disposition: 23:01
Patient with high blood pressure during this ER visit?: No
Discharge Problem:
Insect bite
Prescriptions:
No Action
aspirin [Aspirin Childrens] 81 MG tablet,chewable
81 mg PO DAILY
levothyroxine 112 MCG tablet
112 mcg PO DAILY
multivitamin 1 EACH tablet
1 ea PO DAILY
lisinopril 5 MG tablet
5 mg PO DAILY
coenzyme Q10 [Co Q-10] 200 MG capsule
200 mg PO DAILY
atorvastatin 10 MG tablet
10 mg PO DAILY
carvedilol 12.5 mg tablet
12.5 mg PO BID
spironolactone 25 mg tablet
12.5 mg PO DAILY
albuterol sulfate 90 mcg/actuation Hfa Aerosol Inhaler
2 puff INHALATION R Q6 PRN (Reason: sob/wheezing)
magnesium 200 mg Tablet
200 mg PO DAILY
glucosamine-chondroitin [Osteo Bi-Flex] 250-200 mg Tablet
1 tab PO BID
papain 100 mg Tablet
100 mg PO DAILY
ondansetron 4 mg tablet,disintegrating
4 mg PO Q8H 2 Days Qty: 6 0RF
krill oil
1 dose PO DAILY
mupirocin 2 % Ointment
1 applic TOPICAL DIRECTED
Patient Comments:
Patient started this medication application on 03/26/24 in the morning.
aspirin 325 mg tablet
325 mg PO DAILY Qty: 1 0RF
Rx Instructions:
Take with food
cefadroxil 500 mg capsule
500 mg PO BID Qty: 14 0RF
Rx Instructions:
*Take w/ food
*Take w/ probiotic
*POST-OP USE
docusate sodium [Colace] 100 mg capsule
100 mg PO BID Qty: 1 0RF
Saccharomyces boulardii [Florastor] 250 mg capsule
250 mg PO BID Qty: 1 0RF
sennosides [Senokot] 8.6 mg tablet
17.2 mg PO BID Qty: 2 0RF
magnesium hydroxide [Milk of Magnesia] 400 mg/5 mL suspension
30 ml PO HS PRN (Reason: Constipation) Qty: 1 0RF
gabapentin 300 mg capsule
300 mg PO HS Qty: 10 0RF
ondansetron [ondansetron] 4 mg tablet,disintegrating
4 mg PO Q6H PRN (Reason: n/v) Qty: 20 0RF
Rx Instructions:
take 1/2h b/f pain med if recurrent nausea
allow to dissolve in mouth w/o water
oxycodone 5 mg tablet
5 mg PO Q6H PRN (Reason: 1 tab moderate pain, 2 tabs severe pain) Qty: 30 0RF
Rx Instructions:
Ongoing therapy
acetaminophen 500 mg Tablet
1,000 mg PO QID Qty: 0 0RF
Referrals:
Agustina Banks MD [Family Provider, [facility]]
Activity Restrictions/Additional Instructions:
It is possible you may have had a tick on your arm however it is not quite clear what the foreign body was. The foreign body was removed. In the event this was a tick you received a dose of doxycycline to cover for any potential transmission of
tickborne illness. Return if needed otherwise follow-up with your doctor
Interventions
Interventions:
*Risk Screen - Suicide Last Done: 10/22/24 20:58
*Neglect/Abuse Screening Last Done: 10/22/24 20:58
Discharge Date and Time
Print Language: DIVEHI
[2024-10-22] MEDS: VIBRAMYCIN 200 MG PO (23:04)
[2024-10-22 23:51] VITALS: BP 118/86
== END 2024-10-22 23:52 | disposition home or self-care (01) ==
LOC: EMR 20:55
PROVIDERS: EMERGENCY PHYSICIAN Emergency Medicine; FAMILY PHYSICIAN Family Medicine
DX: S40.862A Insect bite (nonvenomous) of left upper arm, initial encounter (principal); W57.XXXA Bitten or stung by nonvenomous insect and other nonvenomous arthropods, initial encounter; J45.909 Unspecified asthma, uncomplicated; I10 Essential (primary) hypertension; E78.00 Pure hypercholesterolemia, unspecified; E03.9 Hypothyroidism, unspecified
CPT/HCPCS: 99282

== ENCOUNTER → 2024-12-08 10:45 | Outpatient (REF) | payer MEDICARE, OTHER, SELFPAY | LOC: RAD 10:45 | PROVIDERS: ATTENDING PHYSICIAN Internal Medicine Cardiovascular Disease; FAMILY PHYSICIAN Family Medicine | DX: E85.82 Wild-type transthyretin-related (ATTR) amyloidosis (principal) | CPT/HCPCS: 78803; A9538 ==